=== PATIENT | female | born 1985 | race Caucasian/White ===

== ENCOUNTER → 2017-02-11 | Outpatient (REF) ==
[~2017-02-11] MED LIST: IBU600 MG PO; MOTRIN 600600 MG/TAB PO; NIFEREX-15150 MG/CAP PO; PERCOCET 325 MG1 TA2 PO; PRENATAL1 TA1 PO; PRILOSEC 20MG20 MG PO; TUMS EXTRA STR750 MG PO
== END ==
LOC: WSOH 17:30
DX: Z02.89 Encounter for other administrative examinations (principal)

== ENCOUNTER 2018-08-05 12:10 | Inpatient (IN) | payer OTHER ==
--- NOTE | 2018-08-06 12:45 | NUR ---
Initial visit; Parents thanked [facility] for offering congratulations and God's blessings for the of their son. [facility] thanked them for choosing [facility].
[2018-08-06 14:00] LABS: HEMATOCRIT 37.9 % (37.0-47.0); HEMOGLOBIN 11.8 g/dl (12.5-16.0); MEAN CELL VOLUME 88 fl (80.0-100.0); MEAN CORPUSCULAR HEMOGLOBIN 27 pg (27.0-31.0); MEAN CORPUSCULAR HGB CONC 31 g/dl (33.0-37.0); MEAN PLATELET VOLUME 10.3 fl (7.4-10.4); PLATELET COUNT 245 K/mm3 (130-400); RED BLOOD COUNT 4.32 M/mm3 (4.10-5.30); REDCELL DISTRIBUTION WIDTH-CV 14.5 % (11.5-14.5)
[2018-08-06] MEDS ORDERED: PERCOCET 325 MG1 TA2 PO (15:16)
[2018-08-06] MEDS ORDERED: IBU800 M1 PO (15:16)
[2018-08-06 17:30] VITALS: BP 114/50; PULSE 81; TEMP 98.6
[2018-08-06 19:05] VITALS: BP 118/63; PULSE 77; TEMP 98.3
[2018-08-07 08:00] VITALS: BP 122/54; PULSE 79; TEMP 97.6
--- NOTE | 2018-08-07 10:45 | NUR ---
Patient discharge instructions reviewed with patient and . Verbalize understanding. Reviewed with patient that script for motrin sent to pharmacy. No percocet script given as it was not signed by Dr. Browning and patient states she does not need percocet. Patient, and escorted out to private vehicle.
== END 2018-08-07 10:50 | disposition home or self-care (01) | DRG 807 ==
LOC: OB 12:10
PROVIDERS: ADMIT Obstetrics & Gynecology
PROC: 10E0XZZ Delivery of Products of Conception, External Approach (ICD-10-PCS; principal; 2018-08-05)
PROC: 0W8NXZZ Division of Female Perineum, External Approach (ICD-10-PCS; 2018-08-05)
DX: O34.211 Maternal care for low transverse scar from previous cesarean delivery (principal); Z37.0 Single live birth; Z3A.39 39 weeks gestation of pregnancy; O76 Abnormality in fetal heart rate and rhythm complicating labor and delivery; O99.214 Obesity complicating childbirth; O99.824 Streptococcus B carrier state complicating childbirth; O26.893 Other specified pregnancy related conditions, third trimester; Z67.21 Type B blood, Rh negative; O69.81X0 Labor and delivery complicated by cord around neck, without compression, not applicable or unspecified
CPT/HCPCS: J2540; J2590; J7120